=== PATIENT | female | born 1955 | race Caucasian/White ===

== ENCOUNTER 2022-12-04 00:19 | Day surgery (SDC) | payer BC, MEDICARE, SELFPAY ==
[2022-11-25 15:30] VITALS: BMI 26.4
[2022-12-04 08:40] VITALS: BP 145/70; PULSE 72; RESP 18; TEMP 36.4; O2SAT 100; BMI 26.1
[2022-12-04] MEDS: LACTATED RINGERS 1,000 ML 150 ML IV CONT (09:03)
--- NOTE | 2022-12-04 09:21 | P.PNAN_ITS ---
Anes - Initial Pre Proc Eval Procedure: Operation Date: 12/04/22 09:30 Proposed Procedures p Esophagogastroduodenoscopy & Colonoscopy - Anthony Henriquez MD Date/Time: 12/04/22 09:21 Surgeon: Anthony Henriquez MD Pre Op Diagnosis: epigastric pain,hx colon polyps Patient Data Age: 66 Gender: F Height: 1.63 m Weight: 69 kg Last Vital Signs Temp 97.6 F 12/04/22 08:40 Pulse 72 12/04/22 08:40 Resp 18 12/04/22 08:40 BP 145/70 H 12/04/22 08:40 Pulse Ox 100 12/04/22 08:40 O2 Del Method Room Air 12/04/22 08:40 Allergies Allergy/AdvReac Type Severity Reaction Status Date / Time clarithromycin Allergy Unknown Verified 11/25/22 15:44 doxycycline Allergy Unknown Verified 11/25/22 15:44 HYDROCODONE BIT AdvReac Severe n/v,dehydra Uncoded 11/25/22 15:44 tion Home Medications Medication Instructions Recorded Confirmed Type famotidine 20 mg tablet (Pepcid) 20 mg PO BID 11/25/22 11/25/22 History hyoscyamine sulfate 0.125 mg 1 mg PO PRN PRN Cramps 11/25/22 11/25/22 History sublingual tablet Patient hx anesthesia problems: none Family hx anesthesia problems: none Results Review: All pre-operative results and documents have been reviewed as part of the pre- operative evaluation. [facility] Past Medical History Medical History (Updated 10/30/22 @ 11:54 by Molly Bass APRN) Epigastric pain Hx of adenomatous colonic polyps Family History Family History (Updated 10/30/22 @ 11:29 by Mandi Rojas MA) Father Family history of elevated blood lipids Family history of diabetes mellitus in first degree relative Father Diabetes mellitus Heart disease Other Cerebrovascular accident Family history of heart disease in male family member before age 55 Family history of kidney disease Hypertension Social History Social History (System 10/13/22 @ 11:37 by Charbel Deras) Smoking status: Never smoker Alcohol intake: never Substance use: never Substance use type: does not use Living arrangements: with family Spiritual care concerns: No Anes - Eval Final PreProcedure Day of Procedure 07/28/23 09:21 Patient weight: normal Heart: regular rate and rhythm Lungs: clear to auscultation Airway: Mallampati scale class II Neurological: alert and oriented Last oral intake: >/= 8 hours ASA classification: II Emergent: no Anesthetic plan: proceed Anesthesia type and monitoring: general GIVS and standard monitoring Results Review: All pre-operative results and documents have been reviewed as part of the pre- operative evaluation. Informed Consent: The patient's anesthetic plan and its attendant risks and benefits were discussed with the patient/family/POA. Questions were solicited and answers provided to the satisfaction of the patient/family/POA.
--- NOTE | 2022-12-04 09:36 | PM.HPGS ---
History of Present Illness History of Present Illness Consent: Risks, benefits, and alternatives have been discussed and questions answered. Patient agrees to proceed with procedure. Chief complaint: epigastric pain,hx colon polyps Narrative: Angie Monroe is a 66 year old female Complains of epigastric pain. Patient reports discomfort in the mid epigastric area worse after eating. Also will wake her up middle of the night. She states discomfort shortly after eating food even when taking pills. She has tried Pepcid with no certain relief of symptoms. She had similar symptoms many years ago and after while did seem to improve on Pepcid. Patient denies any dysphagia. She has had no bleeding. Previous colonoscopy 5 years ago revealed an adenomatous colon polyp. Family history noncontributory. Patient presents today for both EGD and colonoscopy to assess her GI tract. Review of Systems Review of Systems: Review of systems noncontributory. [facility] Past Medical History Medical History (Updated 10/30/22 @ 11:54 by Molly Bass APRN) Epigastric pain Hx of adenomatous colonic polyps Family History Family History (Updated 10/30/22 @ 11:29 by Mandi Rojas MA) Father Family history of elevated blood lipids Family history of diabetes mellitus in first degree relative Father Diabetes mellitus Heart disease Other Cerebrovascular accident Family history of heart disease in male family member before age 55 Family history of kidney disease Hypertension Social History Social History (System 10/13/22 @ 11:37 by Charbel Deras) Smoking status: Never smoker Alcohol intake: never Substance use: never Substance use type: does not use Living arrangements: with family Spiritual care concerns: No Meds Home Medications and Allergies Home Medications Medication Instructions Recorded Confirmed Type famotidine 20 mg tablet (Pepcid) 20 mg PO BID 11/25/22 11/25/22 History hyoscyamine sulfate 0.125 mg 1 mg PO PRN PRN Cramps 11/25/22 11/25/22 History sublingual tablet Allergies Allergy/AdvReac Type Severity Reaction Status Date / Time clarithromycin Allergy Unknown Verified 11/25/22 15:44 doxycycline Allergy Unknown Verified 11/25/22 15:44 HYDROCODONE BIT AdvReac Severe n/v,dehydra Uncoded 11/25/22 15:44 tion Vital Signs Vital Signs - 24 hr 12/04/22 08:40 Temperature 97.6 F Pulse Rate 72 Respiratory Rate 18 Blood Pressure 145/70 H Pulse Oximetry 100 Oxygen Delivery Room Air Exam Narrative: Physical exam reveals patient to be alert. Vital signs stable. HEENT exam is unremarkable. Patient is anicteric. Lungs are clear to auscultation and percussion. Heart is without murmur or extra sounds. Abdomen bowel sounds are present soft nontender with no organomegaly. Digital external rectal exam is normal. Assessment and Plan Assessment and plan (1) Epigastric pain: Code(s): R10.13 - Epigastric pain Status: Acute Assessment and Plan: Patient with epigastric pain appears to worsen after eating. Plan for EGD to assess more thoroughly. Patient currently on a trial of Pepcid. Further recommendations may be given after endoscopy. (2) Hx of adenomatous colonic polyps: Code(s): Z86.010 - Personal history of colonic polyps Status: Acute Assessment and Plan: Patient found to have adenomatous colon polyp by colonoscopy in 2018. Plan for surveillance colonoscopy at 5 year intervals.
--- NOTE | 2022-12-04 10:02 | SUR.OPER ---
EGD: start 09:52, end 09:56 Colon: start 10:02, end 10:14
[2022-12-04] MEDS: SIMETHICONE ORAL SUSPENSION 20 MG/0.3 ML 30 ML BOTTLE 0.6 ML IRRIGATION (10:09)
[2022-12-04 10:16] VITALS: BP 122/78; PULSE 77; RESP 18; O2SAT 99
[2022-12-04 10:26] VITALS: BP 116/64; PULSE 73; RESP 18; O2SAT 99
[2022-12-04 10:36] VITALS: BP 124/77; PULSE 62; RESP 16; O2SAT 99
== END 2022-12-04 10:51 | disposition home or self-care (01) ==
PROVIDERS: PCP Nurse Practitioner Family; Visit Provider Internal Medicine Gastroenterology
PROC: 0DJ08ZZ Inspection of Upper Intestinal Tract, Via Natural or Artificial Opening Endoscopic (ICD-10-PCS; CPT 43235; principal; 2022-12-04 09:30)
DX: Z12.11 Encounter for screening for malignant neoplasm of colon (principal); K64.8 Other hemorrhoids; K57.30 Diverticulosis of large intestine without perforation or abscess without bleeding; Z86.010 Personal history of colon polyps; R10.13 Epigastric pain
CPT/HCPCS: 45378; 43239; 87081; J2704; J7120